=== PATIENT | female | born 1970 | race Caucasian/White ===

== ENCOUNTER 2016-10-13 18:23 | Inpatient (IN) | payer MEDICAID ==
[~2016-10-13] VITALS: Ht 167.6 cm; Wt 118.0 kg
--- NOTE | 2016-10-13 18:38 | NUR ---
PT BROUGHT INTO ROOM AT THIS TIME. PT LAYING IN BED IN POSITION OF COMFORT
--- NOTE | 2016-10-13 18:50 | NUR ---
RE EXAMINER AT BEDSIDE FOR EKG
--- NOTE | 2016-10-13 19:22 | NUR ---
PORTABLE XRAY AT BEDSIDE.
[2016-10-13 19:31] LABS: PLATELET COUNT 212 x10^3mcL (130-400)
[2016-10-13 19:38] LABS: BASOPHIL % 2.1 % (0-2); CALCIUM 8.3 mg/dL (8.5-10.1); CARBON DIOXIDE 21.8 mmol/L (21-32); CHLORIDE SERUM 106 mmol/L (98-107); CREATININE SERUM 0.7 mg/dL (0.6-1.0); GFR1 > 60 mL/min; GLUCOSE SERUM 151 mg/dL (74-106); POTASSIUM SERUM 3.7 mmol/L (3.5-5.1); RED CELL DISTRIBUTION WIDTH 14.9 % (11.5-14.5); SODIUM SERUM 140 mmol/L (136-145)
[2016-10-13 19:46] LABS: ALBUMIN 3.2 g/dL (3.4-5.0); ALKALINE PHOSPHATASE 57 U/L (46-116); ALT/SGPT 44 U/L (14-59); AST/SGOT 27 U/L (15-37); BILIRUBIN TOTAL 0.21 mg/dL (0.20-1.00)
[2016-10-13] MEDS ORDERED: GLUCOPHAGE XR500 MG PO (21:42)
[2016-10-13] MEDS ORDERED: GLIPIZIDE ER2.5 M1 PO (21:42)
[2016-10-13] MEDS ORDERED: HYDROCHLOROTHIA25 MG PO (21:42)
[2016-10-13] MEDS ORDERED: LEVOTHYROXIN0.125 M2 PO (21:43)
--- NOTE | 2016-10-13 22:03 | NUR ---
REPORT GIVEN TO KERRI NAVARRO.
--- NOTE | 2016-10-13 22:05 | NUR ---
PT AMBULATED TO BATHROOM WITH STEADY GAIT, ACCOMPANIED BY DAUGHTER. NO ACUTE DISTRESS NOTED.
[2016-10-13 22:38] VITALS: BP 122/55
[2016-10-13 22:39] LABS: CHOLESTEROL/HDL RATIO 3.3; MAGNESIUM 2.3 mg/dL (1.8-2.4); PHOSPHOROUS 3.6 mg/dL (2.5-4.9)
--- NOTE | 2016-10-13 22:44 | NUR ---
RECEIVED PATIENT FROM ED VIA GUERNEY, PATIENT ALERT AND ORIENTED, DAUGHTER AT BEDSIDE, TLEE # 8 SR, IV ACCESS TO RIGHT HAND WNL, NO CO PAIN AT THIS TIME, ORIENTED PATIENT TO ROOMA ND SURROUNDINGS, BED IN LOW POSITION, BED RAILS UP X 2, CALL LIGHT WITHIN REACH, WILL ENDORSE CARE TO PRIMARY NURSE FLORES NAVARRO
--- NOTE | 2016-10-13 22:45 | NUR ---
REC'D REPORT FROM ALYSIA NAVARRO. DAUGHTER AT BEDSIDE. PT AAOX4, SPEECH CLEAR, FOLLOWS COMMANDS. ENGLISH SPEAKING. NO SIGNS OF DISTRESS NOTED. BREATHING EVEN/UNLABORED ON RA. ON TELE 8. DENIES CP, DIZZINESS, OR PALPITATIONS. NO EDEMA NOTED. DENIES ABD PAIN OR N/V. C/O SOME TENDERNESS. VOIDING BUT REPORTS DYSURIA. AMBULATORY. SKIN INTACT. ORIENTED TO DEVICES AND SURROUNDINGS. CALL LIGHT WITHIN REACH, BED AT LOWEST POSITION. WILL CONTINUE TO MONITOR.
[2016-10-13 22:46] LABS: T3 TOTAL 1.08 ng/mL
[2016-10-13 22:55] LABS: FREE T4 1.06 ng/dL (0.76-1.46); FREE THYROXINE INDEX 2.9 ug/dL (1.4-4.5); T4(THYROXINE) 8.2 ug/dL (4.7-13.3)
--- NOTE | 2016-10-14 00:40 | NUR ---
UA COLLECTED. TROPONIN DRAWN. PT STILL HAS PAIN TO R ARM BUT "A LITTLE BETTER." WILL CONTINUE TO MONITOR.
[2016-10-14 01:25] LABS: UA SPECIFIC GRAVITY <=1.005 (1.005-1.035); microscopic required? YES; urine erythrocyte TRACE (NEGATIVE)
[2016-10-14 01:43] LABS: AMPHETAMINE QUAL UR NONE DETECTED (NEG <=1000)
--- NOTE | 2016-10-14 02:09 | NUR ---
DR. RICHARD MADE AWARE OF TRACE LEUKS TO UA. ASKED TO D/C MORPHINE PRN THE PT IS ALLERGIC TO MORPHINE. PT RESTING IN BED WITH EYES CLOSED. DAUGHTER AT BEDSIDE. NO SIGNS OF DISTRESS NOTED. BREATHING EVEN/UNLABORED ON RA. CALL LIGHT WITHIN REACH, BED AT LOWEST POSITION. WILL CONTINUE TO MONITOR.
[2016-10-14 05:10] VITALS: BP 103/54
--- NOTE | 2016-10-14 06:23 | NUR ---
PT AWAKE, RESTING COMFORTABLY IN BED. DENIES PALPITATIONS, CP, ABD PAIN, OR NAUSEA. STILL HAS SOME TENDERNESS TO ABD AND DYSURIA. NO RESP DISTRESS OR SOB. BREATHING EVEN/UNLABORED ON RA. 2ND TROPONIN NEGATIVE. BS 138, NO COVERAGE. CALL LIGHT WITHIN REACH, BED AT LOWEST POSITION. WILL ENDORSE TO DAY NURSE.
[2016-10-14 07:24] LABS: BASOPHIL % 0.2 % (0-2); PLATELET COUNT 189 x10^3mcL (130-400)
[2016-10-14 07:27] LABS: RED CELL DISTRIBUTION WIDTH 14.8 % (11.5-14.5)
--- NOTE | 2016-10-14 07:30 | NUR ---
RECEIVED PT. IN BED A/A/O X3. NO SOB, NO N/V NOTED. PT. STATED SHE FEELS THE BURNING SENSATION WHEN URINATING. NS RUNNING AT 100 CC/HR. VIA IV H/L AT R HAND. SCD TO BLE MAINTAINED. BED IN LOW POS., CALL LIGHT WITHIN REACH. SIDE RAILS UP X3.
[2016-10-14 07:32] LABS: CALCIUM 7.9 mg/dL (8.5-10.1); CARBON DIOXIDE 22.7 mmol/L (21-32); CHLORIDE SERUM 106 mmol/L (98-107); CREATININE SERUM 0.7 mg/dL (0.6-1.0); GFR1 > 60 mL/min; GLUCOSE SERUM 131 mg/dL (74-106); POTASSIUM SERUM 4.1 mmol/L (3.5-5.1); SODIUM SERUM 138 mmol/L (136-145)
[2016-10-14 09:25] VITALS: BP 124/75
--- NOTE | 2016-10-14 10:22 | NUR ---
DR. BLANCHARD, THE RESIDENTS, CHARGE NURSE, AND ATTENDING NURSE AT BEDSIDE. CAREPLAN DISCUSSED WITH PT. ALL QUESTIONS ANSWERED.
[2016-10-14 13:49] VITALS: BP 109/67
[2016-10-14 17:23] VITALS: BP 110/58
--- NOTE | 2016-10-14 17:58 | NUR ---
REMAINS IN STABLE CONDITION AT THIS TIME. NO ACUTE DISTRESS NOTED.
[2016-10-14 21:05] VITALS: BP 111/63
[2016-10-15 04:53] VITALS: BP 109/59
--- NOTE | 2016-10-15 05:30 | NUR ---
PT SLEPT FAIRLY. SHE HAD NO EPISODE OF CHEST PAIN AND PALPITATIONS. SHE DENIED HAVING HEADACHE AND DIZZINESS. SHE HAD NO C/O DISCOMFORT ALL THROUGH THE NIGHT. PT IS AMBULATORY. W/ IVF NS AT 100 CC/HR.
[2016-10-15 07:07] LABS: BASOPHIL % 0.9 % (0-2); PLATELET COUNT 172 x10^3mcL (130-400)
[2016-10-15 07:09] LABS: RED CELL DISTRIBUTION WIDTH 14.6 % (11.5-14.5)
[2016-10-15 07:20] LABS: CALCIUM 8.3 mg/dL (8.5-10.1); CARBON DIOXIDE 25.6 mmol/L (21-32); CHLORIDE SERUM 106 mmol/L (98-107); CREATININE SERUM 0.8 mg/dL (0.6-1.0); GFR1 > 60 mL/min; GLUCOSE SERUM 135 mg/dL (74-106); POTASSIUM SERUM 3.7 mmol/L (3.5-5.1); SODIUM SERUM 137 mmol/L (136-145)
--- NOTE | 2016-10-15 07:30 | NUR ---
ALERT AND ORIENTED. BREATHING FREELY ON RA. DENIES ANY PAIN, CHEST OR OTHERWISE. TELE # 8 SA W PVC'S. PT SAYS SHE HASNT BEEN UNDER ANY MORE STRESS LATELY THAN USUAL DAILY LIVING. FRENCH SPEAKING. STUDENT HELPFUL WITH INTERPRETATION. NS INFUISNG 100 CC HOUR. INDEPENDENT WITH ADL'S. CALL LIGHT WITHIN REACH. TRTOP (-) X 3.
[2016-10-15 09:52] VITALS: BP 119/61
--- NOTE | 2016-10-15 12:29 | NUR ---
SITTING UP AT EDGE OF BED VISITING WITH PT IN NEXT BED. DENIES ANY PAIN. BREATHING FREELY ON RA. INDEPENDENT W ADL'S. CALL LIGHT WITHIN REACH.
[2016-10-15 14:25] VITALS: BP 115/60
[2016-10-15 17:25] VITALS: BP 110/54
--- NOTE | 2016-10-15 19:31 | NUR ---
ALERT AND ORIENTED. BREATHING FREELY ON RA. HAS DENIED ANY CHEST PAIN THIS SHIFT. C/O LOWER ABD DISCOMFORT THIS AM. ON LEVAQUIN IV ABX FOR UTI. NS INFUSING 100 CC HOUR. FAMILY WITH PT MOST OF SHIFT. VSS. FEBRILE. INDEPENDENT W/ ADL'S. CALL LIGHT WITHIN REACH.
--- NOTE | 2016-10-15 19:50 | NUR ---
PT SITTING UP AT EDGE OF BED. ALERT AND VERBAL WITH CLEAR SPEECH. ON O2 2L VIA NC 98%. LUNGS CLEAR BILATERALLY. NO S/S OF RESPIRATORY DISTRESS NOTED. ON TELE 8, SB. DENIES ANY CHEST PAIN. BOWEL SOUNDS ACTIVE. ABD SOFT AND FLAT. SKIN WARM AND DRY. IV TO RIGHT HAND PATENT AND INTACT. NO S/S OF INFECTION NOTED. NO EDEMA NOTED. PULSES PALPABLE. DENIES ANY PAIN AT THIS TIME. NO S/S OF DISTRESS NOTED. CALL LIGHT WITHIN REACH. WILL CONTINUE TO MONITOR.
[2016-10-15 21:52] VITALS: BP 110/50
--- NOTE | 2016-10-16 | NUR ---
PT RESTING IN BED WITH EYES CLOSED. BREATHING EQUAL AND UNLABORED. NO S/S OF RESPIRATORY DISTRESS NOTED. IV PATENT AND INFUSING WELL. NO S/S OF DISTRESS NOTED. RESTING COMFORTABLY WITH RELAXED FACIAL FEATURES. CALL LIGHT WITHIN REACH. WILL CONTINUE TO MONITOR.
[2016-10-16 05:41] VITALS: BP 109/58
--- NOTE | 2016-10-16 06:02 | NUR ---
PT SLEPT WELL THROUGH THE NIGHT. ALERT AND AWAKE WITH CLEAR SPEECH. BREATHING EQUAL AND UNLABORED. NO S/S OF RESPIRATORY DISTRESS NOTED. DENIES ANY PAIN OR DISCOMFORT AT THIS TIME. NO S/S OF DISTRESS NOTED. IV PATENT AND INFUSING WELL. CALL LIGHT WITHIN REACH. WILL CONTINUE TO MONITOR.
[2016-10-16 06:47] LABS: CALCIUM 8.5 mg/dL (8.5-10.1); CARBON DIOXIDE 25.3 mmol/L (21-32); CHLORIDE SERUM 108 mmol/L (98-107); CREATININE SERUM 0.8 mg/dL (0.6-1.0); GFR1 > 60 mL/min; GLUCOSE SERUM 127 mg/dL (74-106); SODIUM SERUM 141 mmol/L (136-145)
[2016-10-16 06:55] LABS: BASOPHIL % 0.3 % (0-2); PLATELET COUNT 204 x10^3mcL (130-400)
[2016-10-16 06:56] LABS: RED CELL DISTRIBUTION WIDTH 15.2 % (11.5-14.5)
--- NOTE | 2016-10-16 07:45 | NUR ---
PATIENT AOX3, ABLE TO MAKE NEEDS KNOWN AND FOLLOW COMMANDS. DENIES HEADACHE. TELE 8, DENIES CP/PALPITATION. LUNGS CTA, NO RESP DISTRESS NOTED. PERIPHERAL PULSES PALPABLE, NO EDEMA NOTED. BOWEL SOUNDS ACTIVE, DENIES ANY CONSTIPATION, STATES LAST BM YESTERDAY X2 NORMAL. VOIDS FREELY. SKIN INTACT. IV ACCESS TO RH RUNNING NS INFUSING WELL SITE WNL. DENIES ANY PAIN/DISCOMFORT AT THIS TIME. CALL LIGHT WITHIN REACH.
[2016-10-16 08:01] VITALS: BP 109/63
--- NOTE | 2016-10-16 08:40 | NUR ---
DR ODEN AND TEAM WITH [employer]ER AT BEDSIDE. INFORMED PATIENT OF UPDATED RESULTS AND THAT PATIENT MAY BE DISCHARGED TODAY WITH PRESCRIPTION. PATIENT VERBALIZED UNDERSTANDING AND COOPERATIVE WITH PLAN.
[2016-10-16 09:46] VITALS: BP 108/67
[2016-10-16] MEDS ORDERED: TOP50 PO (12:37)
[2016-10-16] MEDS ORDERED: LEVAQUIN750 MG PO (12:48)
[2016-10-16] MEDS ORDERED: LAC PO (12:50)
[2016-10-16 13:06] VITALS: BP 108/67
[2016-10-16 14:28] VITALS: BP 104/60
[2016-10-16] MEDS ORDERED: LEV250 PO (14:37)
--- NOTE | 2016-10-16 16:30 | NUR ---
PATIENT LEAVING UNIT, DISCHARGE INSTRUCTIONS GIVEN AND PT VERBALIZED UNDERSTANDING. IV DC'D CATH INTACT. TELE RETURNED TO TECH STATION. ALL QUESTIONS ANSWERED.
== END 2016-10-16 16:40 | disposition home or self-care (01) | DRG 203 ==
LOC: ED 18:23 → DU 21:14
PROVIDERS: Family Medicine; ADMIT Student in an Organized Health Care Education/Training Program
DX: R07.89 Other chest pain (principal); N17.0 Acute kidney failure with tubular necrosis; E44.0 Moderate protein-calorie malnutrition; Z68.41 Body mass index [BMI] 40.0-44.9, adult; E11.65 Type 2 diabetes mellitus with hyperglycemia; I27.2 Other secondary pulmonary hypertension; N39.0 Urinary tract infection, site not specified; I37.1 Nonrheumatic pulmonary valve insufficiency; I08.1 Rheumatic disorders of both mitral and tricuspid valves; I10 Essential (primary) hypertension; E83.51 Hypocalcemia; D64.9 Anemia, unspecified; E78.1 Pure hyperglyceridemia; E03.9 Hypothyroidism, unspecified; E66.01 Morbid (severe) obesity due to excess calories; Z79.84 Long term (current) use of oral hypoglycemic drugs
CPT/HCPCS: 82962; 83880; 84439; C9113; J1956; J3490; J7030; Q0092

== ENCOUNTER 2017-05-10 15:15 | Emergency (ER) | payer MEDICAID ==
[~2017-05-10] VITALS: Ht 167.6 cm; Wt 115.7 kg
[~2017-05-10 15:15] MED LIST: GLIPIZIDE ER2.5 M1 PO; GLUCOPHAGE XR500 MG PO; HYDROCHLOROTHIA25 MG PO; LAC PO; LEV250 PO; LEVAQUIN750 MG PO; LEVOTHYROXIN0.125 M2 PO; TOP50 PO
[2017-05-10 15:27] VITALS: Ht 167.6 cm; Wt 115.7 kg
[2017-05-10 17:08] VITALS: BP 131/81
== END 2017-05-10 17:08 | disposition home or self-care (01) ==
LOC: ED 15:15
DX: J45.901 Unspecified asthma with (acute) exacerbation (principal); E11.9 Type 2 diabetes mellitus without complications; E07.9 Disorder of thyroid, unspecified; M54.6 Pain in thoracic spine; Z88.5 Allergy status to narcotic agent
CPT/HCPCS: J7613; J7644

== ENCOUNTER 2018-01-17 17:28 | Emergency (ER) | payer MEDICAID ==
[~2018-01-17] VITALS: Ht 167.6 cm; Wt 94.5 kg
[2018-01-17 17:40] VITALS: Ht 167.6 cm; Wt 94.5 kg
[2018-01-17 18:45] LABS: BASOPHIL % 0.5 % (0-2); PLATELET COUNT 240 x10^3mcL (130-400); RED CELL DISTRIBUTION WIDTH 13.2 % (11.5-14.5)
[2018-01-17 18:58] LABS: CALCIUM 8.6 mg/dL (8.5-10.1); CARBON DIOXIDE 24.8 mmol/L (21-32); CHLORIDE SERUM 106 mmol/L (98-107); CREATININE SERUM 0.7 mg/dL (0.6-1.0); GFR1 > 60 mL/min; GLUCOSE SERUM 94 mg/dL (74-106); POTASSIUM SERUM 4.2 mmol/L (3.5-5.1); SODIUM SERUM 138 mmol/L (136-145)
[2018-01-17 19:03] LABS: ALBUMIN 3.5 g/dL (3.4-5.0); ALKALINE PHOSPHATASE 53 U/L (46-116); ALT/SGPT 19 U/L (14-59); AST/SGOT 11 U/L (15-37); BILIRUBIN TOTAL 0.2 mg/dL (0.20-1.00); TOTAL PROTEIN, SERUM 7.3 g/dL (6.4-8.2)
[2018-01-17 20:40] VITALS: BP 110/62
== END 2018-01-17 20:40 | disposition home or self-care (01) ==
LOC: ED 17:28
PROVIDERS: Emergency Medicine
DX: N94.6 Dysmenorrhea, unspecified (principal); E11.9 Type 2 diabetes mellitus without complications; Z88.5 Allergy status to narcotic agent
CPT/HCPCS: J1885; J7030

== ENCOUNTER 2020-05-23 19:14 | Emergency (ER) | payer OTHER ==
[~2020-05-23] VITALS: Ht 167.6 cm; Wt 119.7 kg
[2020-05-23 19:24] VITALS: Ht 167.6 cm; Wt 119.7 kg
[2020-05-23] MEDS ORDERED: PYRIDIUM100 MG PO (19:59)
[2020-05-23] MEDS ORDERED: IBU600 M2 PO (19:59)
[2020-05-23] MEDS ORDERED: KEF500 PO (19:59)
[2020-05-23 20:12] VITALS: BP 150/64
== END 2020-05-23 20:12 | disposition home or self-care (01) ==
LOC: ED 19:14
DX: N39.0 Urinary tract infection, site not specified (principal); I10 Essential (primary) hypertension